=== PATIENT | male | born 1990 | race Caucasian/White ===

== ENCOUNTER 2016-07-01 21:40 | Emergency (ER) | payer BC ==
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
== END 2016-07-01 23:10 | disposition home or self-care (01) ==
LOC: ER 21:40
DX: S62.212A Bennett's fracture, left hand, initial encounter for closed fracture (principal); S52.571A Other intraarticular fracture of lower end of right radius, initial encounter for closed fracture; V29.3XXA Motorcycle rider (driver) (passenger) injured in unspecified nontraffic accident, initial encounter

== ENCOUNTER → 2016-08-27 | Outpatient (CLI) | payer BC | END | disposition home or self-care (01) | LOC: RAD.S 08-14 09:32 | DX: R94.6 Abnormal results of thyroid function studies (principal) ==